=== PATIENT | male | born 1970 | race Caucasian/White ===

== ENCOUNTER 2017-07-22 07:42 | Day surgery (SDC) | payer BC ==
[2017-07-20 10:29] VITALS: BMI 26.9
[~2017-07-22 07:42] MED LIST: LACTATED RINGERS 1,000 ML IV SCH; MIDAZOLAM 2 MG/2 ML VIAL IV PRN; ONDANSETRON ODT 4 MG TAB PO ONE; SCOPOLAMINE 1.5MG/72HR PATCH TRANSDERM ONE; ceFAZolin IN SWFI 2 GM/20 ML SYRINGE IVP ONE
[2017-07-22] MEDS: HEPARIN SODIUM,PORCINE 5,000 UNIT/ML 1 ML VIAL SQ ONE ×2 (08:20→08:55)
[2017-07-22] MEDS: DEXAMETHASONE SOD PHOSPHATE 10 MG/ML 1 ML VIAL IV ONE ×2 (08:20→08:54)
[2017-07-22] MEDS: LIDOCAINE 1% 20 ML VIAL (10MG/ML) FOR IV START INTRADERMA PRN ×2 (08:20→08:54)
--- NOTE | 2017-07-22 08:49 | P.GSHP ---
History of Present Illness H&P Date: 07/22/17 Chief Complaint: Left inguinal hernia 's is a 46-year-old male referred from Dr. Abe Delgado. Patient rents today for laparoscopic robotic system repair of left inguinal hernia. He denies a significant GI complaints. Past Medical History Past Medical History: Hyperlipidemia History of Any Multi-Drug Resistant Organisms: None Reported Past Surgical History: No Surgical Hx Reported Past Anesthesia/Blood Transfusion Reactions: No Reported Reaction Additional Past Anesthesia/Blood Transfusion Reaction / Comment(s): never had anesthesia Past Psychological History: No Psychological Hx Reported Smoking Status: Never smoker Past Alcohol Use History: Occasional Past Drug Use History: None Reported - Past Family History Mother Family Medical History: No Reported History Medications and Allergies Home Medications Medication Instructions Recorded Confirmed Type Ibuprofen 200 mg PO DAILY PRN 07/20/17 07/20/17 History Rosuvastatin Calcium [Crestor] 10 mg PO HS 07/20/17 07/20/17 History Allergies Allergy/AdvReac Type Severity Reaction Status Date / Time No Known Allergies Allergy Verified 07/20/17 10:22 Surgical - Exam Vital Signs Temp Pulse Resp BP Pulse Ox 98.4 F 76 18 134/72 99 07/22/17 08:14 07/22/17 08:14 07/22/17 08:14 07/22/17 08:14 07/22/17 08:14 - General well developed, no distress - Eyes PERRL - ENT normal pinna - Neck no masses - Respiratory normal expansion - Cardiovascular Rhythm: regular - Abdomen Abdomen: soft, non tender Assessment and Plan Assessment: Left inguinal hernia. We'll perform laparoscopic robotic assistance repair.
[2017-07-22] MEDS ORDERED: MORPHINE SULFATE 10 MG/ML SYRINGE ONE (09:31)
[2017-07-22] MEDS ORDERED: ROCURONIUM BROMIDE 10 MG/ML 10 ML VIAL IV ONE (09:31)
[2017-07-22] MEDS ORDERED: GLYCOPYRROLATE 0.2 MG/ML 2 ML VIAL ONE (09:31)
[2017-07-22] MEDS ORDERED: PROPOFOL 10 MG/ML 20 ML VIAL IV ONE (09:31)
[2017-07-22] MEDS ORDERED: NEOSTIGMINE 1 MG/ML 10 ML VIAL ONE (09:31)
[2017-07-22] MEDS ORDERED: SUCCINYLCHOLINE CHLORIDE 100 MG/5 ML SYR IV ONE (09:31)
[2017-07-22] MEDS ORDERED: MIDAZOLAM 2 MG/2 ML VIAL ONE (09:31)
[2017-07-22] MEDS ORDERED: LIDOCAINE 1% INJ 10MG/ML (20 ML MDV) ONE (09:31)
[2017-07-22] MEDS ORDERED: fentaNYL (PF) 50 MCG/ML 2 ML AMP ONE (09:31)
[2017-07-22] MEDS ORDERED: KETOROLAC 30 MG/ML 1 ML VIAL ONE (09:31)
[2017-07-22] MEDS ORDERED: BUPIVACAINE (PF) 0.25% 30 ML VIAL SQ ONE (09:32)
[2017-07-22] MEDS ORDERED: LACTATED RINGERS 1,000 ML IV ONE ×4 (10:56)
--- NOTE | 2017-07-22 10:58 | P.OP ---
Date of Procedure: 07/22/17 Preoperative Diagnosis: Left inguinal hernia incarcerated Postoperative Diagnosis: Left incarcerated inguinal hernia Right inguinal hernia Procedure(s) Performed: Laparoscopic robotic C pair of bilateral inguinal hernia Anesthesia: ANNI Surgeon: Diego Donald Estimated Blood Loss (ml): 5 Pathology: none sent Condition: stable Disposition: PACU Description of Procedure: The patient's placed on the operating table in the supine position. The patient received general anesthesia. The patient's abdomen was prepped and draped in usual sterile fashion. The skin was anesthetized 1% local Xylocaine at the incision sites. Using an 11 blade a skin incision was made at the umbilicus. The fascia was grasped with a Tyler and then the peritoneal cavity was entered with the Veress needle. Position of the Veress needle was confirmed with a positive drop test. After adequate insufflation a 5 mm trocar was placed into the peritoneal cavity. The Laparoscope was placed the peritoneal cavity. And a robotic 8 mm trocar was placed in the right lateral position and then another 8 mm robotic trochars placed in the left lateral position. The original 5 mm trocar was exchanged for a 12 mm trocar. The patient was placed in reverse Trendelenburg and then the patient was docked to the robot. Next the peritoneum over top of the right inguinal hernia was incised and then using blunt and sharp dissection and electrocautery the hernia sac was dissected free from the floor of the inguinal canal. The hernia sac was completely reduced into the peritoneal cavity. And then using the Pro sales operations coordinator mesh the hernia was repaired. The peritoneum was then sutured with 20V lock suture. Next, the sigmoid colon was reduced from the left and one hernia. Next the peritoneum over top of the left inguinal hernia was incised and then using blunt and sharp dissection and electrocautery the hernia sac was dissected free from the floor of the inguinal canal. The hernia sac was completely reduced into the peritoneal cavity. And then using the Pro sales operations coordinator mesh the hernia was repaired. The peritoneum was then sutured with 20V lock suture. The patient was then undocked the robot. The needle was withdrawn from the peritoneal cavity. The umbilical trocar site was closed with 0 Ethibond suture. The skin was closed interrupted 3-0 Monocryl suture. Dermabond dressing was applied. Patient was sent to recovery in stable condition.
[2017-07-22 11:05] VITALS: TEMP 97.9
[2017-07-22] MEDS: MEPERIDINE 50 MG/ML SYRINGE IVP ONE ×2 (11:15→11:25)
[2017-07-22] MEDS ORDERED: HYDROcodone/APAP 7.5-325MG 1 EACH TAB PO ONE (12:20)
[2017-07-22 12:30] VITALS: RESP 18
[2017-07-22 12:46] VITALS: BP 118/79; PULSE 78
== END 2017-07-22 13:44 | disposition home or self-care (01) ==
LOC: OR 07:42
PROVIDERS: ATTEND Surgery
DX: K40.30 Unilateral inguinal hernia, with obstruction, without gangrene, not specified as recurrent (principal); E78.5 Hyperlipidemia, unspecified; Z79.899 Other long term (current) drug therapy
CPT/HCPCS: 49650; S2900

== ENCOUNTER 2021-04-01 22:16 | Emergency (ER) | payer OTHER ==
[2021-04-01 22:36] VITALS: BP 156/99; PULSE 108; RESP 20; TEMP 98.7
[2021-04-02] MEDS ORDERED: LIDOCAINE 1% INJ 10MG/ML (20 ML MDV) SQ ONE (00:04)
[2021-04-02] MEDS ORDERED: BACITRACIN OINT 1 EACH PACKET TOPICAL ONE (00:04)
--- NOTE | 2021-04-02 00:36 | ED ---
Wound/Laceration HPI - General Chief Complaint: Wound/Laceration Stated Complaint: [facility] thumb laceration Time Seen by Provider: 04/02/21 00:03 Source: patient Mode of arrival: ambulatory Limitations: no limitations - History of Present Illness Initial Comments: 50-year-old male patient presents to the emergency department today for evaluation of laceration to the left thumb. Patient states he was at work cutting a box without close on when he axilla slipped and cut his hand. States they immediately applied a dressing. He denies any numbness or tingling to the thumb. Denies any difficulty with range of motion. He states his tetanus vaccine is up-to-date within the last 5 years. Denies significant pain to the site. Denies use of blood thinning medications. Denies any other injuries or concerns. - Related Data Home Medications Medication Instructions Recorded Confirmed Ibuprofen 200 mg PO DAILY PRN 07/20/17 07/20/17 Rosuvastatin Calcium [Crestor] 10 mg PO HS 07/20/17 07/20/17 Previous Rx's Medication Instructions Recorded Docusate [Colace] 100 mg PO BID #20 capsule 07/22/17 HYDROcodone/APAP 7.5-325MG [[place] 1 each PO Q4H PRN #16 tab 07/22/17 7.5] Allergies Allergy/AdvReac Type Severity Reaction Status Date / Time No Known Allergies Allergy Verified 04/01/21 22:34 Review of Systems ROS Statement: Those systems with pertinent positive or pertinent negative responses have been documented in the HPI. ROS Other: All systems not noted in ROS Statement are negative. Past Medical History Past Medical History: Hyperlipidemia History of Any Multi-Drug Resistant Organisms: None Reported Past Surgical History: No Surgical Hx Reported Past Anesthesia/Blood Transfusion Reactions: No Reported Reaction Additional Past Anesthesia/Blood Transfusion Reaction / Comment(s): never had anesthesia Past Psychological History: No Psychological Hx Reported Smoking Status: Never smoker Past Alcohol Use History: Occasional Past Drug Use History: None Reported - Past Family History Mother Family Medical History: No Reported History General Exam Limitations: no limitations General appearance: alert, in no apparent distress, other (This is a well- developed, well-nourished adult male in no acute distress.) Respiratory exam: Present: normal lung sounds bilaterally. Absent: respiratory distress, wheezes, rales, rhonchi, stridor Cardiovascular Exam: Present: regular rate, normal rhythm, normal heart sounds. Absent: systolic murmur, diastolic murmur, rubs, gallop, clicks Extremities exam: Present: full ROM, normal capillary refill, other (There is a 3 cm laceration noted to the left hyperthenar eminence laterally. No active bleeding noted. Full range of motion intact. Skin is otherwise pink, warm, dry. Cap refill less than 3 seconds. Radial pulses 2+.). Absent: normal inspection, tenderness, pedal edema, joint swelling, calf tenderness Neurological exam: Present: alert, oriented X3, CN II-XII intact Psychiatric exam: Present: normal affect, normal mood Skin exam: Present: warm, dry, intact, normal color. Absent: rash Course Vital Signs 04/01/21 22:35 Temperature 98.7 F Pulse Rate 108 H Respiratory 20 Rate Blood Pressure 156/99 O2 Sat by Pulse 98 Oximetry Procedures - Laceration Laceration #1 Consent Obtained: verbal consent Indication: laceration Site: hand (left thumb) Size (cm): 3 Depth: simple, single layer Anesthetic Used: lidocaine 1% Anesthesia Technique: local infiltration Amount (mls): 4 Pre-repair: irrigated extensively Type of Sutures: nylon Size of Sutures: 5-0 Number of Sutures: 4 Technique: simple, interrupted Patient Tolerated Procedure: well, no complications Medical Decision Making - Medical Decision Making 50-year-old male patient presents to the emergency department today for evaluation of left thumb laceration. Physical examination did reveal a 3 cm laceration. No active bleeding. Wound was cleansed and repaired as documented. Neurovascular status was intact. Range of motion intact. He verbalizes discharge to follow-up with his primary care physician. He is instructed to have features removed in 7 days. He is educated regarding wound care and signs or symptoms of infection. Return parameters were discussed in detail. He verbalizes understanding and is discharged in stable condition. My attending is Dr. Carson. Disposition Clinical Impression: Laceration of left thumb Disposition: HOME SELF-CARE Condition: Good Instructions (If sedation given, give patient instructions): Care For Your Stitches (ED), Laceration (ED) Additional Instructions: Wound clean and dry. Cleanse twice daily with warm water and antibacterial soap. Return in 1 week that his stitches removed. Monitor for signs or symptoms of infection including but not limited to redness, swelling, drainage of pus, fever, or chills. Return for any new, worsening, or concerning symptoms. Is patient prescribed a controlled substance at d/c from ED?: No Referrals: Abe Billy DO [Primary Care Provider] - 1-2 days Time of Disposition: 00:36
== END 2021-04-02 00:41 | disposition home or self-care (01) ==
LOC: EC 22:16
DX: S61.012A Laceration without foreign body of left thumb without damage to nail, initial encounter (principal); W26.0XXA Contact with knife, initial encounter; Y99.0 Civilian activity done for income or pay
CPT/HCPCS: 12002; 99282; J2001

== ENCOUNTER 2021-07-27 19:18 | Emergency (ER) | payer OTHER ==
[2021-07-27 21:17] VITALS: BP 115/81; PULSE 72; RESP 16; TEMP 97.9
--- NOTE | 2021-07-27 22:09 | ED ---
General Adult HPI - General Chief complaint: Wound/Laceration Stated complaint: R Hand Laceration Time Seen by Provider: 07/27/21 22:09 Source: patient Mode of arrival: ambulatory Limitations: no limitations - History of Present Illness Initial comments: Patient presents to the ED stating that he has sustained a right palmar hand laceration. Patient states that he sustained this laceration while attempting to open a metal can of food just prior to coming to the ED tonight. Patient states that his tetanus is up-to-date. Patient denies right-hand neurological deficit. Patient denies right-hand weakness or numbness. Patient denies chest pain, dyspnea, dizziness, vomiting, or any other symptoms or complaints. - Related Data Home Medications Medication Instructions Recorded Confirmed Ibuprofen 200 mg PO DAILY PRN 07/20/17 07/20/17 Rosuvastatin Calcium [Crestor] 10 mg PO HS 07/20/17 07/20/17 Previous Rx's Medication Instructions Recorded Docusate [Colace] 100 mg PO BID #20 capsule 07/22/17 HYDROcodone/APAP 7.5-325MG [[place] 1 each PO Q4H PRN #16 tab 07/22/17 7.5] Allergies Allergy/AdvReac Type Severity Reaction Status Date / Time No Known Allergies Allergy Verified 07/27/21 21:17 Review of Systems ROS Statement: Those systems with pertinent positive or pertinent negative responses have been documented in the HPI. ROS Other: All systems not noted in ROS Statement are negative. Past Medical History Past Medical History: Hyperlipidemia History of Any Multi-Drug Resistant Organisms: None Reported Past Surgical History: No Surgical Hx Reported Additional Past Surgical History / Comment(s): Inguinal hernia. Past Anesthesia/Blood Transfusion Reactions: No Reported Reaction Additional Past Anesthesia/Blood Transfusion Reaction / Comment(s): never had anesthesia Past Psychological History: No Psychological Hx Reported Smoking Status: Never smoker Past Alcohol Use History: Occasional Past Drug Use History: None Reported - Past Family History Mother Family Medical History: No Reported History General Exam Limitations: no limitations General appearance: alert, in no apparent distress Head exam: Present: atraumatic, normocephalic Eye exam: Present: normal appearance ENT exam: Present: mucous membranes moist Respiratory exam: Present: normal lung sounds bilaterally. Absent: respiratory distress, wheezes, rales, rhonchi, stridor Cardiovascular Exam: Present: regular rate, normal rhythm, normal heart sounds, other (Normal radial pulses bilaterally) Extremities exam: Present: full ROM, other (A 2.5 cm, linear, subcutaneous laceration is noted to the palmar surface of the patient's right hand just proximal to his right fourth and fifth MCP joints; no tendon injury is noted on exploration; patient has full range of motion/strength and full sensation in his right hand) Neurological exam: Present: alert, oriented X3. Absent: motor sensory deficit Psychiatric exam: Present: normal affect, normal mood Skin exam: Present: warm, dry, normal color Course Vital Signs 07/27/21 21:12 Temperature 97.9 F Pulse Rate 72 Respiratory 16 Rate Blood Pressure 115/81 O2 Sat by Pulse 98 Oximetry Procedures - Laceration Laceration #1 Consent Obtained: verbal consent Indication: laceration Site: other (Right hand) Size (cm): 2 Description: linear Depth: simple, single layer Anesthetic Used: lidocaine 1% Anesthesia Technique: local infiltration Amount (mls): 3 Pre-repair: wound explored, irrigated extensively, deep structures intact Type of Sutures: nylon Size of Sutures: 5-0 Number of Sutures: 5 Technique: simple, interrupted Patient Tolerated Procedure: well, no complications Disposition Clinical Impression: Laceration of right hand Disposition: HOME SELF-CARE Condition: Stable Instructions (If sedation given, give patient instructions): Laceration (ED) Additional Instructions: Return to the ER immediately should you develop new or worsening pain, redness surrounding your wound, drainage of pus from your wound, a fever, feeling dizzy or faint, shortness of breath, or new or worsening symptoms. Follow up with your primary care provider or return to the ER for suture removal in 7 days. Is patient prescribed a controlled substance at d/c from ED?: No Referrals: Abe Billy DO [Primary Care Provider] - 1-2 days Time of Disposition: 22:43
[2021-07-27] MEDS ORDERED: LIDOCAINE 1% INJ 10MG/ML (5 ML VIAL-PF) SQ ONE (22:13)
== END 2021-07-27 22:48 | disposition home or self-care (01) ==
LOC: EC 19:18
DX: S61.411A Laceration without foreign body of right hand, initial encounter (principal); E78.5 Hyperlipidemia, unspecified; Z79.899 Other long term (current) drug therapy; W27.4XXA Contact with kitchen utensil, initial encounter
CPT/HCPCS: 12001; 99282; J2001

== ENCOUNTER → 2022-01-07 | Outpatient (CLI) | payer OTHER ==
--- NOTE | 2022-01-07 20:23 | MR ---
EXAMINATION TYPE: MR shoulder LT wo con DATE OF EXAM: 01/07/2022 COMPARISON: Outside left shoulder x-ray December 04, 2021 HISTORY: Left shoulder pain for 2 months. TECHNIQUE: Multiplanar, multisequence imaging of the left shoulder is performed without contrast. FINDINGS: Rotator Cuff: Some increased signal in the supraspinatus tendon. Infraspinatus tendon is intact. Subs capularis tendon intact. Rotator cuff muscle bulk preserved. Acromioclavicular Joint: Mild to moderate narrowing and superior capsular hypertrophy. Type II downsl oping acromion noted. Loss of underlying fat plane. Glenohumeral Joint: No significant spurring. No joint effusion. Labrum: Increased signal superior labrum suggestive of degenerative tearing. Biceps Tendon: The long head of biceps is in normal location within bicipital groove. Intracapsular p ortion not well visualized. Bone marrow signal: No focal abnormal marrow signal is appreciated. Other: No additional significant abnormality is appreciated. IMPRESSION: Tendinosis distal supraspinatus tendon. No significant narrowing seen. Degenerative mead es as detailed above. Type II downsloping acromion with suggestion of underlying impingement. Correla te clinically.
== END | disposition home or self-care (01) ==
LOC: RADMRIMAIN 11:02
PROVIDERS: ATTEND Orthopaedic Surgery
DX: M19.012 Primary osteoarthritis, left shoulder (principal)

== ENCOUNTER → 2022-03-21 | Outpatient (CLI) | payer OTHER ==
[2022-03-21 22:36] LABS: Basophils # (A) 0.03 X 10*3/uL (0.00-0.10); Basophils % (A) 0.6 %; Eosinophils # (A) 0.13 X 10*3/uL (0.04-0.35); Eosinophils % (A) 2.5 %; HCT 45.7 % (39.6-50.0); HGB 14.6 g/dL (13.0-17.0); Immature Grans, Automated 0.4 %; Lymphocytes # (A) 1.93 X 10*3/uL (0.90-5.00); Lymphocytes % (A) 36.6 %; MCH 28.8 pg (27.0-32.0); MCHC 31.9 g/dL (32.0-37.0); MCV 90.1 fL (80.0-97.0); Mean Platelet Volume 10.5 fL (9.5-12.2); Monocytes # (A) 0.43 X 10*3/uL (0.20-1.00); Monocytes % (A) 8.2 %; NRBC Per 100 WBC 0 /100 WBCS (0.0-0.0); Neutrophils # (A) 2.73 X 10*3/uL (1.80-7.70); Neutrophils % (A) 51.7 %; Platelet Count 179 X 10*3/uL (140-440); RBC 5.07 X 10*6/uL (4.40-5.60); WBC 5.27 X 10*3/uL (4.50-10.00)
[2022-03-21 23:36] LABS: Anion Gap 9.6 mmol/L (10.00-18.00); Carbon Dioxide 28.4 mmol/L (20.0-27.5); Potassium 4.2 mmol/L (3.5-5.5)
== END | disposition home or self-care (01) ==
LOC: LABPAT 12:45
PROVIDERS: ATTEND Orthopaedic Surgery
DX: Z01.818 Encounter for other preprocedural examination (principal); I44.4 Left anterior fascicular block; I45.19 Other right bundle-branch block; R94.31 Abnormal electrocardiogram [ECG] [EKG]
CPT/HCPCS: 80051; 85025; 93005

== ENCOUNTER 2022-04-03 09:09 | Day surgery (SDC) | payer OTHER ==
--- NOTE | 2022-04-02 22:14 | HP ---
HISTORY AND PHYSICAL DATE OF SURGERY: 04/03/2022. HISTORY OF PRESENT ILLNESS: Larry Pierre is a 51-year-old patient seen for progressive left shoulder pain. We discussed options for treatment. He elected to proceed with left shoulder arthroscopy. Consent was obtained. PAST MEDICAL HISTORY: Hypercholesterolemia. PAST SURGICAL HISTORY: Herniorrhaphy. DAILY MEDICATIONS: Ibuprofen. ALLERGIES: None. SOCIAL HISTORY: Denies tobacco use. PHYSICAL EVALUATION OF LEFT SHOULDER: Flexion is 140 degrees, abduction 120 degrees, external rotation 25 degrees with weakness. Tenderness along the anterolateral acromion and acromioclavicular joint, impingement is positive at 80. Drop-arm sign is positive. Distal neurovascular exam is intact. RADIOGRAPHS: Radiographs of the left shoulder revealed a type 2 acromion, acromioclavicular joint osteoarthritis and cystic changes of the tuberosity. MRI left shoulder revealed impingement along with a labral tear and rotator cuff tendinosis. IMPRESSION: 1. Left shoulder impingement, labral tear. 2. Left shoulder impingement with rotator cuff tendinosis. 3. Left shoulder acromioclavicular joint osteoarthritis. PLAN: Left shoulder arthroscopy, subacromial decompression, Marky procedure and debridement. MMODL / IJN: [id number] /
[~2022-04-03 09:09] MED LIST changes: +DEXAMETHASONE SOD PHOSPHATE 4 MG/ML 1 ML VIAL IV ONE; +HYDROmorphone 0.5 MG/0.5 ML SYRINGE IVP PRN; +LIDOCAINE 1% (10MG/ML) FOR IV START INTRADERMA PRN; +ONDANSETRON 4 MG/2 ML VIAL IVP ONE; -ONDANSETRON ODT 4 MG TAB PO ONE; -SCOPOLAMINE 1.5MG/72HR PATCH TRANSDERM ONE; -ceFAZolin IN SWFI 2 GM/20 ML SYRINGE IVP ONE
[2022-04-03] MEDS ORDERED: LACTATED RINGERS 1,000 ML IV ONE ×2 (09:45→11:43)
[2022-04-03] MEDS ORDERED: MIDAZOLAM 2 MG/2 ML VIAL IVP ONE (10:25)
[2022-04-03] MEDS ORDERED: GLYCOPYRROLATE 0.2 MG/ML 2 ML VIAL ONE (10:32)
[2022-04-03] MEDS ORDERED: LIDOCAINE 2% INJ 20 MG/ML (2 ML VIAL) ONE (10:32)
[2022-04-03] MEDS ORDERED: ROPIVACAINE 5 MG/ML 30 ML VIAL ONE (10:32)
[2022-04-03] MEDS ORDERED: SUCCINYLCHOLINE CHLORIDE 200 MG/10 ML VIAL IV ONE (10:32)
[2022-04-03] MEDS ORDERED: DEXAMETHASONE SOD PHOSPHATE 4 MG/ML 1 ML VIAL ONE (10:32)
[2022-04-03] MEDS ORDERED: NEOSTIGMINE 1 MG/ML 10 ML VIAL ONE (10:32)
[2022-04-03] MEDS ORDERED: PROPOFOL 10 MG/ML 20 ML VIAL IV ONE (10:32)
[2022-04-03] MEDS ORDERED: fentaNYL (PF) 50 MCG/ML 2 ML AMP ONE (10:32)
[2022-04-03 12:05] VITALS: TEMP 97.4
[2022-04-03 12:13] VITALS: RESP 16
--- NOTE | 2022-04-03 12:17 | P.OP ---
Date of Procedure: 04/03/22 Preoperative Diagnosis: Left shoulder impingement Postoperative Diagnosis: 1. Left shoulder rotator cuff tear 2. Left shoulder impingement Procedure(s) Performed: 1. Left shoulder arthroscopic rotator cuff repair 2. Left shoulder arthroscopic subacromial decompression Implants: 14.75 Arthrex swivel lock anchor Anesthesia: GETA, regional (Interscalene block) Surgeon: Tiburcio Lennon Shearing Machine Tender #1: Louie Rubio Estimated Blood Loss (ml): 11 Pathology: none sent Condition: stable Disposition: PACU Indications for Procedure: 51-year-old gentleman seen with progressive left shoulder pain. After having treatment options discussed, he elected to proceed with arthroscopy. Operative Findings: See description of procedure Description of Procedure: Patient underwent an interscalene block by department of anesthesia. The patient was then taken to the operative suite. The patient underwent a general anesthetic by the department of anesthesia. The patient was placed into a lateral position and secured. There was appropriate padding of the bony prominence. Left shoulder was then prepped and draped in normal sterile orthopedic fashion. We placed the extremity in 10 pounds of longitudinal traction. A posterior incision was now made for a posterior working portal site. The trocar and cannula were inserted into the glenohumeral joint. Arthroscopy was initiated. Spinal needle was now inserted anteriorly, to ascertain the anterior working portal site. An incision was now made in that area, a trocar was inserted followed by a probe. The biceps tendon was absent. There was some mild grade 1 chondromalacia of the humeral head. The labrum was stable. Instruments were now removed from the glenohumeral joint. Utilizing the posterior working portal site, the trocar and cannula were inserted into the subacromial space. Arthroscopy initiated. I made an incision 2 fingerbreadths lateral to the acromion. I introduced my trocar followed by my ArthroCare ablator. I now began ablating thick subacromial bursal tissue, which exposed the undersurface of the anterior acromion. There was diminished subacromial space. There was a very prominent anterior acromion. A motorized bur was introduced and a subacromial decompression was performed. I also excised some osteophytes off the inferior aspect of the distal clavicle. The AC joint was visualized and noted to be moderately arthritic, I did not think enough to warrant a Marky procedure. I turned my attention to the rotator cuff tendon. There was a full-thickness perforation/tear along the distal supraspinatus. I debrided the margins getting down to stable tendon tissue. The defect/tear measuring approximately 1.5 cm and was freely mobile over the footprint. I abraded the footprint with a motorized bur. I passed 3 everted mattress sutures through good bites of rotator cuff tendon. I punched a hole in the footprint area for insertion of an anchor. All 6 limbs of suture were passed through the eyelet of a 4.75 Arthrex swivel lock anchor. I placed the eye into the pre- punch hole. I held it in position while Sergio WILLETT tension all 6 suture limbs and deployed the anchor with good fixation noted. All residual suture limbs were now clipped. We had good compression of the tendon along the entire footprint. Instruments now removed from the portal sites. All portal sites were approximated with nylon suture. Sterile dressings were applied followed by a shoulder sling. Louie WILLETT assisted in this complex case. The patient was awakened, transferred to a bed, and taken to recovery in stable condition.
[2022-04-03 13:18] VITALS: BP 136/87; PULSE 87
--- NOTE | 2022-04-03 20:59 | P.ANPRN ---
Procedure Note - Anesthesia - Nerve Block Performed Left Interscalene Single Time Out Performed: Yes Date of Procedure: 04/03/22 Procedure Start Time: Procedure Stop Time: Location of Patient: PreOp Indication: Acute Post-Operative Pain, Requested by Surgeon Sedation Type: Sedate with meaningful contact maintained Preparation: Sterile Prep Position: Supine Needle Types: Pajunk Needle Gauge: 21 Ultrasound used to visualize needle placement: Yes Ultrasound used to observe medication spread: Yes Blood Aspirated: No Pain Paresthesia on Injection Noted: No Resistance on Injection: Normal Image Stored and Saved: Yes Events: Uneventful and Well Tolerated (ropi .5% 20cc plus dexamethasone 4mg)
== END 2022-04-03 13:36 | disposition home or self-care (01) ==
LOC: OR 09:09
PROVIDERS: ATTEND Orthopaedic Surgery
DX: M75.102 Unspecified rotator cuff tear or rupture of left shoulder, not specified as traumatic (principal); M19.012 Primary osteoarthritis, left shoulder; M75.42 Impingement syndrome of left shoulder; S43.432A Superior glenoid labrum lesion of left shoulder, initial encounter; G89.18 Other acute postprocedural pain; E78.00 Pure hypercholesterolemia, unspecified; E78.5 Hyperlipidemia, unspecified; E07.9 Disorder of thyroid, unspecified; Z79.1 Long term (current) use of non-steroidal anti-inflammatories (NSAID); X58.XXXA Exposure to other specified factors, initial encounter
CPT/HCPCS: 64415; 76942; 29827; 29826; C1713; J2250; J0330; J1100; J2710; J0690; J2405; J3010; J2795; J2704; J2001

== ENCOUNTER 2022-07-10 09:27 | Day surgery (SDC) | payer OTHER ==
[2022-07-07 10:53] VITALS: BMI 28.8
[2022-07-10] MEDS ORDERED: LACTATED RINGERS 1,000 ML IV ONE (09:32)
[2022-07-10] MEDS ORDERED: LACTATED RINGERS 1,000 ML IV SCH (09:35)
[2022-07-10 09:42] VITALS: TEMP 97.6
[2022-07-10] MEDS ORDERED: PROPOFOL 10 MG/ML 20 ML VIAL IV ONE (10:14)
--- NOTE | 2022-07-10 10:19 | P.GSHP ---
History of Present Illness H&P Date: 07/10/22 Chief Complaint: Screening colonoscopy This a 51-year-old male been safe for screening colonoscopy. Patient denies a significant GI complaints. Past Medical History Past Medical History: Hyperlipidemia, Musculoskeletal Disorder History of Any Multi-Drug Resistant Organisms: None Reported Past Surgical History: Hernia Repair, Orthopedic Surgery Additional Past Surgical History / Comment(s): Inguinal hernia repair, left shoulder arthroscopy. Past Anesthesia/Blood Transfusion Reactions: No Reported Reaction Additional Past Anesthesia/Blood Transfusion Reaction / Comment(s): never had anesthesia Past Psychological History: No Psychological Hx Reported Smoking Status: Never smoker Past Alcohol Use History: Occasional Past Drug Use History: None Reported - Past Family History Mother Family Medical History: No Reported History Medications and Allergies Home Medications Medication Instructions Recorded Confirmed Type Rosuvastatin Calcium [Crestor] 10 mg PO HS 07/20/17 07/10/22 History Multivitamins, Thera [Multivitamin 1 tab PO DAILY 07/07/22 07/07/22 History (formulary)] Allergies Allergy/AdvReac Type Severity Reaction Status Date / Time No Known Allergies Allergy Verified 07/07/22 10:54 Surgical - Exam Vital Signs Temp Pulse Resp BP Pulse Ox 97.6 F 97 20 153/99 99 07/10/22 09:41 07/10/22 09:41 07/10/22 09:41 07/10/22 09:41 07/10/22 09:41 - General well developed, well nourished, no distress - Eyes PERRL - ENT normal pinna, normal nares - Neck no masses - Respiratory normal expansion - Cardiovascular Rhythm: regular - Abdomen Abdomen: soft, non tender Assessment and Plan Assessment: We'll perform screening colonoscopy
--- NOTE | 2022-07-10 10:39 | P.OP ---
Date of Procedure: 07/10/22 Preoperative Diagnosis: Screening colonoscopy Postoperative Diagnosis: Colon polyps Procedure(s) Performed: Screening colonoscopy Anesthesia: MAC Surgeon: Diego Donald Pathology: other (Colon polyps) Condition: stable Disposition: PACU Description of Procedure: The patient's placed on the endoscopy table in the lateral position. He received IV sedation. Digital rectal exam was performed. This revealed no abnormalities. The prostate was symmetric without nodules. Flexible colonoscope was then placed patient anus and passed throughout the entire colon. The ileocecal valve was visualized. The cecum, ascending and transverse colon appeared normal. In the descending colon there was a small sessile polyp. This removed a combination of the snare and forcep. Scope back and the sigmoid colon appeared normal except for the scattered diverticula. Scope back the rectum a small polyp seen was removed with the snare. Scope was withdrawn for patient.
[2022-07-10 11:05] VITALS: PULSE 68; RESP 20
[2022-07-10 11:28] VITALS: BP 134/80
[2022-07-10] MEDS ORDERED: HYDROmorphone 0.5 MG/0.5 ML SYRINGE IVP ONE (11:31)
== END 2022-07-10 12:04 ==
LOC: ORWHC2ENDO 09:27
PROVIDERS: ATTEND Surgery
DX: Z12.11 Encounter for screening for malignant neoplasm of colon (principal); D12.8 Benign neoplasm of rectum; K57.30 Diverticulosis of large intestine without perforation or abscess without bleeding; E78.5 Hyperlipidemia, unspecified; Z86.59 Personal history of other mental and behavioral disorders
CPT/HCPCS: 88305; 45385; J2704; J1170; 45380